=== PATIENT | female | born 1985 | race Caucasian/White ===

== ENCOUNTER 2021-12-24 11:04 | Inpatient (IN) | payer SELFPAY ==
[~2021-12-24 11:04] MED LIST: Ropivacaine 0.2% PF 2 MG/ML 20 ML SDV ONE
[2021-12-24] MEDS ORDERED: Nalbuphine HCl 10 MG/ 1ML Amp IVPUSH PRN (12:37)
[2021-12-24] MEDS ORDERED: Sodium Chloride 0.9% 10 ML Syringe FLUSH PRN (12:37)
[2021-12-24] MEDS ORDERED: Ondansetron 4 MG/2 ML SDV IVPUSH PRN (12:37)
[2021-12-24] MEDS ORDERED: Oxytocin/Lactated Ringers 10 UNIT/1,000 ML BAG IV SCH ×2 (12:45→17:00)
[2021-12-24] MEDS: Lactated Ringers 1,000 ML IV SCH ×2 (16:53→20:32)
[2021-12-24] MEDS ORDERED: Bupivacaine/fentaNYL/NS 100 ML Bag EPIDUR PRN (20:07)
[2021-12-24] MEDS ORDERED: fentaNYL 100 MCG/2 ML SDV EPIDUR PRN (20:07)
[2021-12-24] MEDS ORDERED: ePHEDrine 50 MG/ML SDV IVPUSH PRN (20:07)
[2021-12-24] MEDS ORDERED: diphenhydrAMINE 50 MG/ML SDV IVPUSH PRN (20:07)
[2021-12-24] MEDS ORDERED: Sodium Chloride 0.9% 10 ML Syringe FLUSH SCH (21:00)
[2021-12-24] MEDS ORDERED: Docusate Sodium 100 MG Cap PO PRN (22:40)
[2021-12-24] MEDS ORDERED: Witch Hazel Medicated Pads 40/Jar TOP PRN (22:40)
[2021-12-24] MEDS ORDERED: Benzocaine/Menthol 20%-0.5% Spray 78 GM Cannister TOP PRN (22:40)
[2021-12-24] MEDS ORDERED: Acetaminophen 325 MG Tab PO PRN (22:40)
[2021-12-25] MEDS: Ibuprofen 600 MG Tab PO PRN ×2 (02:39→18:53)
== END 2021-12-26 10:30 | disposition home or self-care (01) | DRG 807 ==
LOC: JD.OBCHECK 11:04 → JD.OB 11:23 → JD.OBCHECK 13:46 → JD.OB 13:47 → OBSVTOIN 22:17 → JD.OB 22:18
PROVIDERS: ADMIT Obstetrics & Gynecology; ATTEND Obstetrics & Gynecology
PROC: 10E0XZZ Delivery of Products of Conception, External Approach (ICD-10-PCS; principal; 2021-12-24)
PROC: 0KQM0ZZ Repair Perineum Muscle, Open Approach (ICD-10-PCS; 2021-12-24)
PROC: 10907ZC Drainage of Amniotic Fluid, Therapeutic from Products of Conception, Via Natural or Artificial Opening (ICD-10-PCS; 2021-12-24)
PROC: 3E0R3BZ Introduction of Anesthetic Agent into Spinal Canal, Percutaneous Approach (ICD-10-PCS; 2021-12-24)
PROC: 00HU33Z Insertion of Infusion Device into Spinal Canal, Percutaneous Approach (ICD-10-PCS; 2021-12-24)
DX: O70.1 Second degree perineal laceration during delivery (principal); Z37.0 Single live birth; Z3A.39 39 weeks gestation of pregnancy
CPT/HCPCS: 01967; 36415; 51701; 59025; 59409; 85027; 86592; 86803; 86850; 86900; 86901; A9270-GY; J2590; J2795; J7120